=== PATIENT | female | born 1985 | race Caucasian/White ===

== ENCOUNTER 2022-05-08 11:12 | Emergency (ER) | payer OTHER ==
[~2022-05-08] VITALS: Ht 170.2 cm; Wt 117.9 kg
[~2022-05-08 11:12] MED LIST: CEPH500 PO; HYDACE5 PO; MULVITMINE; NAPR500 PO; NEOPOLHCSU OT
[2022-05-08] MEDS ORDERED: Amoxicillin500 MG PO (11:33)
== END 2022-05-08 11:46 | disposition home or self-care (01) ==
LOC: ER 11:12
DX: K04.7 Periapical abscess without sinus (principal); Z88.0 Allergy status to penicillin; Z88.8 Allergy status to other drugs, medicaments and biological substances; Z79.899 Other long term (current) drug therapy
CPT/HCPCS: 99282

== ENCOUNTER 2022-06-09 11:48 | Emergency (ER) | payer OTHER ==
[~2022-06-09] VITALS: Ht 170.2 cm; Wt 122.5 kg
[~2022-06-09 11:48] MED LIST changes: +Amoxicillin500 MG PO
[2022-06-09 12:28] VITALS: BP 155/130
== END 2022-06-09 15:37 | disposition home or self-care (01) ==
LOC: ER 11:48
DX: O90.0 Disruption of cesarean delivery wound (principal); Z88.0 Allergy status to penicillin; Z88.8 Allergy status to other drugs, medicaments and biological substances; Z79.899 Other long term (current) drug therapy
CPT/HCPCS: 99282